=== PATIENT | female | born 1965 | race Caucasian/White ===

== ENCOUNTER 2020-03-27 18:36 | Emergency (ER) | payer OTHER ==
[2020-03-27 18:41] VITALS: RESP 18; TEMP 99.1
[2020-03-27] MEDS ORDERED: SODIUM CHLORIDE 0.9% 500 ML 500 ML IV STA (18:55)
[2020-03-27] MEDS ORDERED: MORPHINE SULFATE 2 MG/ML SYRINGE IVP STA (18:55)
[2020-03-27] MEDS ORDERED: IPRATROPIUM-ALBUTEROL 3 ML NEB INHALATION STA (18:56)
--- NOTE | 2020-03-27 19:00 | ED ---
General Adult HPI - General Source: patient, RN notes reviewed, old records reviewed Mode of arrival: ambulatory Limitations: no limitations <Harvinder Barnard - Last Filed: 03/27/20 22:54> <Fany Hoffmann - Last Filed: 04/04/20 12:47> - General Chief complaint: Abdominal Pain Stated complaint: abd pain Time Seen by Provider: 03/27/20 18:44 - History of Present Illness Initial comments: 54-year-old female patient past history significant for COPD presents to ED for evaluation of abdominal pain. Patient reports that the last 4 days she's been having right upper quadrant left upper quadrant abdominal pain. Denies nausea, reports that she has had diarrhea but is not unusual for her. She also reports that her breathing has been getting worse for the last month. States it feels similar to her emphysema. Denies chest pain. Reports that she ran out of her inhaler. Denies any other complaints. Systemic: Pt denies fatigue, fever/chills, rash. Pt denies weakness, night sweats, weight loss. Neuro: Pt denies headache, visual disturbances, syncope or pre-syncope. HEENT: Pt denies ocular discharge or irritation, otalgia, rhinorrhea, pharyngitis or notable lymphadenopathy. Cardiopulmonary: Pt denies chest pain, heart palpitations, dyspnea on exertion. Abdominal/GI: Pt denies n/v. : Pt denies dysuria, burning w/ urination, frequency/urgency. Denies new onset urinary or bowel incontinence. MSK: Pt denies myalgia, loss of strength or function in extremities. Neuro: Pt denies new onset weakness, paresthesias. (Harvinder Barnard) - Related Data Previous Rx's Medication Instructions Recorded Albuterol Inhaler [Ventolin Hfa 2 puff INHALATION RT-QID PRN #1 03/27/20 Inhaler] inhaler predniSONE 50 mg PO DAILY #4 tab 03/27/20 Allergies Allergy/AdvReac Type Severity Reaction Status Date / Time Penicillins Allergy Unknown Verified 03/27/20 19:37 codeine AdvReac Nausea Verified 03/27/20 19:37 Review of Systems ROS Other: All systems not noted in ROS Statement are negative. <Harvinder Barnard - Last Filed: 03/27/20 22:54> ROS Other: All systems not noted in ROS Statement are negative. <Fany Hoffmann - Last Filed: 04/04/20 12:47> ROS Statement: Those systems with pertinent positive or pertinent negative responses have been documented in the HPI. Past Medical History Past Medical History: Asthma, COPD History of Any Multi-Drug Resistant Organisms: None Reported Past Surgical History: Section Past Psychological History: No Psychological Hx Reported Smoking Status: Current every day smoker Past Alcohol Use History: None Reported Past Drug Use History: None Reported <Harvinder Barnard - Last Filed: 03/27/20 22:54> General Exam Limitations: no limitations <Harvinder Barnard - Last Filed: 03/27/20 22:54> - General Exam Comments Initial Comments: Constitutional: NAD, AOX3, Pt has pleasant affect. HEENT: NC/AT, trachea midline, neck supple, no lymphadenopathy. Posterior pharynx non erythematous, without exudates. External ears appear normal, without discharge. Mucous membranes moist. Eyes PERRLA, EOM intact. There is no scleral icterus. No pallor noted. Cardiopulmonary: RRR, no murmurs, rubs or gallops, no JVD noted. Lungs CTAB in anterior and posterior [place]. Mild diminished breath sounds are noted. Impr alonzo air movement after breathing treatment. No peripheral edema. Abdominal exam: Abdomen soft and non-distended. Abdomen mildly tender to palpation right upper quadrant epigastric region.. Bowel sounds active in LLQ. No hepatosplenomegaly. No ecchymosis Neuro: CN II-XII grossly intact. No nuchal rigidity. No raccon eyes, no young sign, no hemotympanum. No cervical spinal tenderness. MSK: No posterior calf tenderness bilaterally, homans sign negative bilaterally. Posterior tibialis and radial pulse +2 bilaterally. Sensation intact in upper and lower extremities. Full active ROM in upper and lower extremities, 5/5 stregnth. (Harvinder Barnard) Course Vital Signs 03/27/20 03/27/20 03/27/20 18:37 19:33 19:40 Temperature 99.1 F Pulse Rate 104 H 85 92 Respiratory 18 Rate Blood Pressure 180/109 O2 Sat by Pulse 96 Oximetry 03/27/20 03/27/20 21:00 22:27 Temperature Pulse Rate 93 92 Respiratory 18 18 Rate Blood Pressure 156/85 147/89 O2 Sat by Pulse 97 95 Oximetry Medical Decision Making - Lab Data Result diagrams: 03/27/20 19:35 03/27/20 19:35 - EKG Data -: EKG Interpreted by Me (and Dr. Marti ) <Harvinder Barnard - Last Filed: 03/27/20 22:54> - Lab Data Result diagrams: 03/27/20 19:35 03/27/20 19:35 <Fany Hoffmann - Last Filed: 04/04/20 12:47> - Medical Decision Making 54-year-old female patient past history significant for COPD presents to ED for evaluation of abdominal pain. Patient reports that the last 4 days she's been having right upper quadrant left upper quadrant abdominal pain. Denies nausea, reports that she has had diarrhea but is not unusual for her. She also reports that her breathing has been getting worse for the last month. States it feels similar to her emphysema. Denies chest pain. Reports that she ran out of her inhaler. Denies any other complaints. Patient vital signs are stable, afebrile. Physical exam displayed mild amount of right upper quadrant epigastric tenderness. Mild diminished breath sounds. Laboratory investigations were obtained. Mild leukocytosis as noted. UA negative. Troponin negative. Chest x-ray displayed small pleural effusions, normal heart and lungs. Gallbladder ULTRASOUND displayed large liver no focal deficit no dilated ducts. CT abdomen and pelvis with contrast displayed no evidence of renal stone obstruction normal appendix, no sign acute abdomen and pelvis. Patient was administered breathing treatments states that her breathing is here feeling improved. At time of discharge patient reports that she now believes that the pain is from a fall she suffered 4 days ago when she fell forward and hit her anterior abdomen on the bathtub. Patient will be discharged with breathing treatments will follow up with primary care provider and will return to ER if condition worsens. Case discussed with Dr. Hoffmann. (Harvinder Barnard) I was available for consultation in the emergency department. The history and physical exam were done by the midlevel provider. I was consulted for this patients care. I reviewed the case with the midlevel provider and based on their presentation of the patient, I agree with the assessment, medical decision making and plan of care as documented. Chart was dictated using [employer] ([employer]) dictation software. Attempts were made to correct any dictation errors however some typographical errors may persist. Patient was seen during a national state of emergency due to the Covid-19 pandemic. (Fany Hoffmann) - Lab Data Lab Results 03/27/20 03/27/20 03/27/20 Range/Units 19:35 19:35 19:35 WBC 11.8 H (3.8-10.6) k/uL RBC 4.54 (3.80-5.40) m/uL Hgb 14.1 (11.4-16.0) gm/dL Hct 43.1 (34.0-46.0) % MCV 94.9 (80.0-100.0) fL MCH 31.1 (25.0-35.0) pg MCHC 32.7 (31.0-37.0) g/dL RDW 13.8 (11.5-15.5) % Plt Count 249 (150-450) k/uL Neutrophils % 66 % Lymphocytes % 21 % Monocytes % 7 % Eosinophils % 4 % Basophils % 1 % Neutrophils # 7.8 H (1.3-7.7) k/uL Lymphocytes # 2.5 (1.0-4.8) k/uL Monocytes # 0.8 (0-1.0) k/uL Eosinophils # 0.4 (0-0.7) k/uL Basophils # 0.1 (0-0.2) k/uL PT 9.7 (9.0-12.0) sec INR 0.9 (<1.2) APTT 26.6 (22.0-30.0) sec Sodium (137-145) mmol/L Potassium (3.5-5.1) mmol/L Chloride (98-107) mmol/L Carbon Dioxide (22-30) mmol/L Anion Gap mmol/L BUN (7-17) mg/dL Creatinine (0.52-1.04) mg/dL Est GFR (CKD-EPI)AfAm (>60 ml/min/1.73 sqM) Est GFR (CKD-EPI)NonAf (>60 ml/min/1.73 sqM) Glucose (74-99) mg/dL Plasma Lactic Acid Mike (0.7-2.0) mmol/L Calcium (8.4-10.2) mg/dL Total Bilirubin (0.2-1.3) mg/dL AST (14-36) U/L ALT (4-34) U/L Alkaline Phosphatase (38-126) U/L Troponin I (0.000-0.034) ng/mL Total Protein (6.3-8.2) g/dL Albumin (3.5-5.0) g/dL Lipase (23-300) U/L Urine Color Light Yellow Urine Appearance Clear (Clear) Urine pH 6.5 (5.0-8.0) Ur Specific [place] 1.009 (1.001-1.035) Urine Protein Negative (Negative) Urine Glucose (UA) Negative (Negative) Urine Ketones Negative (Negative) Urine Blood Negative (Negative) Urine Nitrite Negative (Negative) Urine Bilirubin Negative (Negative) Urine Urobilinogen <2.0 (<2.0) mg/dL Ur Leukocyte Esterase Negative (Negative) Urine HCG, Qual (Not Detectd) 03/27/20 03/27/20 03/27/20 Range/Units 19:35 19:35 19:35 WBC (3.8-10.6) k/uL RBC (3.80-5.40) m/uL Hgb (11.4-16.0) gm/dL Hct (34.0-46.0) % MCV (80.0-100.0) fL MCH (25.0-35.0) pg MCHC (31.0-37.0) g/dL RDW (11.5-15.5) % Plt Count (150-450) k/uL Neutrophils % % Lymphocytes % % Monocytes % % Eosinophils % % Basophils % % Neutrophils # (1.3-7.7) k/uL Lymphocytes # (1.0-4.8) k/uL Monocytes # (0-1.0) k/uL Eosinophils # (0-0.7) k/uL Basophils # (0-0.2) k/uL PT (9.0-12.0) sec INR (<1.2) APTT (22.0-30.0) sec Sodium 138 (137-145) mmol/L Potassium 5.1 (3.5-5.1) mmol/L Chloride 107 (98-107) mmol/L Carbon Dioxide 25 (22-30) mmol/L Anion Gap 6 mmol/L BUN 12 (7-17) mg/dL Creatinine 0.55 (0.52-1.04) mg/dL Est GFR (CKD-EPI)AfAm >90 (>60 ml/min/1.73 sqM) Est GFR (CKD-EPI)NonAf >90 (>60 ml/min/1.73 sqM) Glucose 123 H (74-99) mg/dL Plasma Lactic Acid Mike 1.9 (0.7-2.0) mmol/L Calcium 9.1 (8.4-10.2) mg/dL Total Bilirubin 0.5 (0.2-1.3) mg/dL AST 26 (14-36) U/L ALT 23 (4-34) U/L Alkaline Phosphatase 102 (38-126) U/L Troponin I (0.000-0.034) ng/mL Total Protein 7.7 (6.3-8.2) g/dL Albumin 4.0 (3.5-5.0) g/dL Lipase 61 (23-300) U/L Urine Color Urine Appearance (Clear) Urine pH (5.0-8.0) Ur Specific [place] (1.001-1.035) Urine Protein (Negative) Urine Glucose (UA) (Negative) Urine Ketones (Negative) Urine Blood (Negative) Urine Nitrite (Negative) Urine Bilirubin (Negative) Urine Urobilinogen (<2.0) mg/dL Ur Leukocyte Esterase (Negative) Urine HCG, Qual Not Detected (Not Detectd) 03/27/20 Range/Units 19:35 WBC (3.8-10.6) k/uL RBC (3.80-5.40) m/uL Hgb (11.4-16.0) gm/dL Hct (34.0-46.0) % MCV (80.0-100.0) fL MCH (25.0-35.0) pg MCHC (31.0-37.0) g/dL RDW (11.5-15.5) % Plt Count (150-450) k/uL Neutrophils % % Lymphocytes % % Monocytes % % Eosinophils % % Basophils % % Neutrophils # (1.3-7.7) k/uL Lymphocytes # (1.0-4.8) k/uL Monocytes # (0-1.0) k/uL Eosinophils # (0-0.7) k/uL Basophils # (0-0.2) k/uL PT (9.0-12.0) sec INR (<1.2) APTT (22.0-30.0) sec Sodium (137-145) mmol/L Potassium (3.5-5.1) mmol/L Chloride (98-107) mmol/L Carbon Dioxide (22-30) mmol/L Anion Gap mmol/L BUN (7-17) mg/dL Creatinine (0.52-1.04) mg/dL Est GFR (CKD-EPI)AfAm (>60 ml/min/1.73 sqM) Est GFR (CKD-EPI)NonAf (>60 ml/min/1.73 sqM) Glucose (74-99) mg/dL Plasma Lactic Acid Mike (0.7-2.0) mmol/L Calcium (8.4-10.2) mg/dL Total Bilirubin (0.2-1.3) mg/dL AST (14-36) U/L ALT (4-34) U/L Alkaline Phosphatase (38-126) U/L Troponin I <0.012 (0.000-0.034) ng/mL Total Protein (6.3-8.2) g/dL Albumin (3.5-5.0) g/dL Lipase (23-300) U/L Urine Color Urine Appearance (Clear) Urine pH (5.0-8.0) Ur Specific [place] (1.001-1.035) Urine Protein (Negative) Urine Glucose (UA) (Negative) Urine Ketones (Negative) Urine Blood (Negative) Urine Nitrite (Negative) Urine Bilirubin (Negative) Urine Urobilinogen (<2.0) mg/dL Ur Leukocyte Esterase (Negative) Urine HCG, Qual (Not Detectd) - EKG Data EKG Comments: Ventricular rate 100,. And for 140, QRS 112, QT/QTC 364/469. Normal sinus rhythm, normal EKG, no concern for acute ischemia. (Harvinder Barnard) Disposition Is patient prescribed a controlled substance at d/c from ED?: No <Harvinder Barnard - Last Filed: 03/27/20 22:54> <Fany Hoffmann - Last Filed: 04/04/20 12:47> Clinical Impression: Abdominal pain, COPD (chronic obstructive pulmonary disease) Disposition: HOME SELF-CARE Condition: Stable Instructions (If sedation given, give patient instructions): COPD (Chronic Obstructive Pulmonary Disease) (ED), Abdominal Pain (ED) Additional Instructions: Follow-up with primary care provider tomorrow. Follow up with gluten settling tender tomorrow. Take steroids as directed. use breathing treatment as needed. Return to ER if condition worsens. Prescriptions: predniSONE 50 mg PO DAILY #4 tab Albuterol Inhaler [Ventolin Hfa Inhaler] 2 puff INHALATION RT-QID PRN #1 inhaler PRN Reason: Wheezing Referrals: None,Stated [Primary Care Provider] - 1-2 days Sam Mcguire [STAFF PHYSICIAN] - 1-2 days Anastacia Kirk MD [STAFF PHYSICIAN] - 1-2 days
[2020-03-27 19:50] LABS: Appearance,Urine Clear (Clear); Bilirubin,Urine Negative (Negative); Blood,Urine Negative (Negative); Color,Urine Light Yellow; Glucose,Urine (UA) Negative (Negative); Ketones,Urine Negative (Negative); Leukocyte Esterase,Urine Negative (Negative); Nitrite,Urine Negative (Negative); PH, Urine 6.5 (5.0-8.0); Protein,Urine Negative (Negative); Specific Gravity,Urine 1.009 (1.001-1.035); Urobilinogen,Urine <2.0 mg/dL (<2.0)
[2020-03-27 19:54] LABS: Basophils # (A) 0.1 k/uL (0-0.2); Basophils % (A) 1 %; Eosinophils # (A) 0.4 k/uL (0-0.7); Eosinophils % (A) 4 %; HCT 43.1 % (34.0-46.0); HGB 14.1 gm/dL (11.4-16.0); Lymphocytes # (A) 2.5 k/uL (1.0-4.8); Lymphocytes % (A) 21 %; MCH 31.1 pg (25.0-35.0); MCHC 32.7 g/dL (31.0-37.0); MCV 94.9 fL (80.0-100.0); Mean Platelet Volume 8.2; Monocytes # (A) 0.8 k/uL (0-1.0); Monocytes % (A) 7 %; Neutrophils # (A) 7.8 k/uL (1.3-7.7); Neutrophils % (A) 66 %; Platelet Count 249 k/uL (150-450); RBC 4.54 m/uL (3.80-5.40); RDW 13.8 % (11.5-15.5); WBC 11.8 k/uL (3.8-10.6)
[2020-03-27 19:58] LABS: ALT 23 U/L (4-34); AST 26 U/L (14-36); African American GFR (CKD) >90 (>60 ml/min/1.73 sqM); Alkaline Phosphatase 102 U/L (38-126); Anion Gap 6 mmol/L; Blood Urea Nitrogen 12 mg/dL (7-17); Calcium 9.1 mg/dL (8.4-10.2); Carbon Dioxide 25 mmol/L (22-30); Chloride 107 mmol/L (98-107); Glucose 123 mg/dL (74-99); Non-African American GFR(CKD) >90 (>60 ml/min/1.73 sqM); Sodium 138 mmol/L (137-145); Total Bilirubin 0.5 mg/dL (0.2-1.3); Total Protein 7.7 g/dL (6.3-8.2)
--- NOTE | 2020-03-27 20:00 | XR ---
EXAMINATION TYPE: XR chest 2V DATE OF EXAM: 03/27/2020 COMPARISON: NONE HISTORY: Epigastric pain TECHNIQUE: 2 views FINDINGS: Heart and mediastinum are normal. Lungs are clear. There is slight blunting of the costophr enic angles. There are no hilar masses. There are chest leads. IMPRESSION: Small pleural effusions. Normal heart and lungs.
[2020-03-27 20:10] LABS: Potassium 5.1 mmol/L (3.5-5.1)
[2020-03-27 21:06] LABS: INR 0.9 (<1.2); Partial Thromboplastin Time 26.6 sec (22.0-30.0); Prothrombin Time 9.7 sec (9.0-12.0)
--- NOTE | 2020-03-27 21:28 | US ---
EXAMINATION TYPE: US gallbladder DATE OF EXAM: 03/27/2020 COMPARISON: NONE CLINICAL HISTORY: RUQ pain . RUQ pain Exam limited to body habitus patient unable to hold breath and roll. Also overlying bowel gas. EXAM MEASUREMENTS: Liver Length: 22.2 cm Gallbladder Wall: .37 cm CBD: .6 cm Right Kidney: 11.8 x 5.6 x 4.6 cm Pancreas: Obscured by bowel gas Liver: Increased attenuation limited hepatomegaly. Gallbladder: Appears wnl Evidence for sonographic Shaw's sign: No CBD: wnl Right Kidney: wnl IMPRESSION: Enlarged liver. No focal defect. No dilated ducts.
[2020-03-27 22:28] VITALS: BP 147/89; PULSE 92
--- NOTE | 2020-03-27 22:32 | CT ---
EXAMINATION TYPE: CT abdomen pelvis w con DATE OF EXAM: 03/27/2020 COMPARISON: None HISTORY: RUQ pain with nausea. CT DLP: 3105.4 mGycm Automated exposure control for dose reduction was used. CONTRAST: Performed with IV Contrast, patient injected with 100 mL of Isovue 300. Images were obtained from the diaphragm to the floor the pelvis with IV contrast Isovue 100 mL. The lung bases are clear. There is no pleural effusion. Heart size is normal. There is no pericardial effusion. Liver spleen pancreas gallbladder appear normal. Bile ducts are not dilated. Stomach is in tact. There is no adrenal mass. Kidneys show satisfactory contrast opacification. There is no hydronephrosi s. There is 2.3 cm hypodense rounded area in the anterior right kidney that is probably a cyst. Urete rs are not dilated. There is no retroperitoneal adenopathy. Bladder distends smoothly. Uterus is ante verted. There is no pelvic mass. There is no inguinal hernia. There is no free fluid in the pelvis. T he appendix is posterior and appears normal. There is no mesenteric edema. There is no ascites or free air. There is no sign of a bowel obstructio n. There are a few scattered sigmoid diverticula. There is no sign of diverticulitis. Lumbar vertebra have normal alignment. There is vacuum disc at L4-5 and L5-S1. There is no compressio n fracture. The bony pelvis appears intact. Impression no evidence of renal stone or obstruction. Normal appendix. No sign of acute abdomen and pelvis.
[2020-03-27] MEDS ORDERED: predniSONE 50 MG TAB PO STA (22:58)
== END 2020-03-27 23:21 | disposition home or self-care (01) ==
LOC: EC 18:36
DX: J44.9 Chronic obstructive pulmonary disease, unspecified (principal); R10.11 Right upper quadrant pain; R10.12 Left upper quadrant pain; J90 Pleural effusion, not elsewhere classified; R10.811 Right upper quadrant abdominal tenderness; R10.816 Epigastric abdominal tenderness; D72.829 Elevated white blood cell count, unspecified; F17.200 Nicotine dependence, unspecified, uncomplicated; Z88.0 Allergy status to penicillin; Z88.5 Allergy status to narcotic agent
CPT/HCPCS: 36415; 94640; 93005; 80053; 83605; 83690; 84484; 85025; 85610; 85730; 81003; 81025; 71046; 76705; 74177; 99285; 96374; 96361 ×4; J2270; J7512; Q9967

== ENCOUNTER 2022-06-13 09:44 | Emergency (ER) | payer OTHER ==
[2022-06-13 09:50] VITALS: RESP 20; TEMP 97.9
[2022-06-13] MEDS ORDERED: PHENAZOPYRIDINE 200 MG TAB PO STA (11:46)
[2022-06-13] MEDS ORDERED: IBUPROFEN 800 MG TAB PO STA (11:47)
[2022-06-13] MEDS ORDERED: metroNIDAZOLE 500 MG TAB PO STA (12:35)
--- NOTE | 2022-06-13 12:38 | ED ---
Abdominal Pain HPI - General Chief Complaint: Abdominal Pain Stated Complaint: cramps,burning sensation when urinating Time Seen by Provider: 06/13/22 11:07 Source: patient Mode of arrival: ambulatory Limitations: no limitations - History of Present Illness Initial Comments: Patient is a 56-year-old female who presents to the emergency department with a chief complaint of burning with urination. Patient states symptoms started 3 days ago and have gotten worse. Patient states she feels burning in her lower abdomen. Denies history of urinary tract infection. Denies fever chills nausea vomiting. Denies concern for sexually-transmitted infections however does agree to testing since she had unprotected intercourse with a new partner yesterday. - Related Data Home Medications Medication Instructions Recorded Confirmed Acetaminophen [Tylenol Extra 1,000 - 1,500 mg PO Q6H PRN 06/13/22 06/13/22 Strength] Previous Rx's Medication Instructions Recorded Cephalexin [Keflex] 250 mg PO Q6HR 10 Days #20 cap 06/13/22 metroNIDAZOLE [Flagyl] 500 mg PO BID 7 Days #14 tab 06/13/22 Allergies Allergy/AdvReac Type Severity Reaction Status Date / Time Penicillins Allergy Rash/Hives Verified 06/13/22 13:22 codeine AdvReac Nausea Verified 06/13/22 13:22 Review of Systems ROS Statement: Those systems with pertinent positive or pertinent negative responses have been documented in the HPI. ROS Other: All systems not noted in ROS Statement are negative. Past Medical History Past Medical History: Asthma, COPD History of Any Multi-Drug Resistant Organisms: None Reported Past Surgical History: Section Past Psychological History: No Psychological Hx Reported Smoking Status: Current every day smoker Past Alcohol Use History: None Reported Past Drug Use History: None Reported General Exam Limitations: no limitations General appearance: alert, in no apparent distress Respiratory exam: Present: normal lung sounds bilaterally. Absent: respiratory distress, wheezes, rales, rhonchi, stridor Cardiovascular Exam: Present: regular rate, normal rhythm, normal heart sounds. Absent: systolic murmur, diastolic murmur, rubs, gallop, clicks GI/Abdominal exam: Present: soft, tenderness (suprapubic ), normal bowel sounds. Absent: distended, guarding, rebound, rigid External exam: Present: other (genital warts over anterior gluteal cleft ). Absent: swelling Speculum exam: Present: cervical discharge (yellow, thick ). Absent: normal speculum exam By manual exam: Absent: cervical motion tenderness Neurological exam: Present: alert, oriented X3, CN II-XII intact Psychiatric exam: Present: normal affect, normal mood Skin exam: Present: warm, dry, intact, normal color. Absent: rash Course Vital Signs 06/13/22 06/13/22 09:49 14:54 Temperature 97.9 F Pulse Rate 80 96 Respiratory 20 20 Rate Blood Pressure 161/83 138/72 O2 Sat by Pulse 98 96 Oximetry Medical Decision Making - Medical Decision Making This is a 56-year-old female who presents with dysuria 2. Tenderness. Thorough history and examination were performed. Speculum exam reveals yellow thick cervical discharge. There is no cervical motion tenderness. There is no fever. Trichomonas is detected. Urinalysis is indicative of infection. Patient treated for Trichomonas and urinary tract infection. STI education provided in detail. Dr. May is my attending. - Lab Data Lab Results 06/13/22 06/13/22 Range/Units 11:30 13:09 Urine Color Yellow Urine Appearance Cloudy H (Clear) Urine pH 5.5 (5.0-8.0) Ur Specific [place] 1.030 (1.001-1.035) Urine Protein 1+ H (Negative) Urine Glucose (UA) Negative (Negative) Urine Ketones Negative (Negative) Urine Blood Small H (Negative) Urine Nitrite Negative (Negative) Urine Bilirubin Negative (Negative) Urine Urobilinogen 2.0 (<2.0) mg/dL Ur Leukocyte Esterase Large H (Negative) Urine RBC 21 H (0-5) /hpf Urine WBC 24 H (0-5) /hpf Ur Squamous Epith Cells 6 H (0-4) /hpf Calcium Oxalate Crystal Many H (None) /hpf Urine Bacteria Rare H (None) /hpf Urine Mucus Many H (None) /hpf Trichomonas Ag (Rapid) Positive H (Negative) Disposition Clinical Impression: Trichomonas infection, Dysuria, Urinary tract infection Disposition: HOME SELF-CARE Condition: Good Instructions (If sedation given, give patient instructions): Sexually Transmitted Diseases (ED), Trichomoniasis (ED) Additional Instructions: You have been diagnosed with Trichomonas which is a sexually transmitted infection. It is very important you take antibiotic. Do not drink alcohol while taking this antibiotic as it can cause stomach upset. It is very important your partner is tested and treated for Trichomonas. Do not have sexual intercourse until antibiotic course is finished. Follow-up with primary care provider in one to 2 days. Return to the emergency department if you experience new, concerning, or worsening symptoms. Prescriptions: metroNIDAZOLE [Flagyl] 500 mg PO BID 7 Days #14 tab Cephalexin [Keflex] 250 mg PO Q6HR 10 Days #20 cap Is patient prescribed a controlled substance at d/c from ED?: No Referrals: None,Stated [Primary Care Provider] - 1-2 days
[2022-06-13 13:39] LABS: Appearance,Urine Cloudy (Clear); Bacteria,Urine Rare /hpf; Bilirubin,Urine Negative (Negative); Blood,Urine Small (Negative); Calcium Oxalate Crystals,Urine Many /hpf; Color,Urine Yellow; Glucose,Urine (UA) Negative (Negative); Ketones,Urine Negative (Negative); Leukocyte Esterase,Urine Large (Negative); Mucus,Urine Many /hpf; Nitrite,Urine Negative (Negative); PH, Urine 5.5 (5.0-8.0); Protein,Urine 1+ (Negative); RBC,Urine 21 /hpf (0-5); Squamous Epithelial Cell,Urine 6 /hpf (0-4); WBC,Urine 24 /hpf (0-5)
[2022-06-13 14:56] VITALS: BP 138/72; PULSE 96
== END 2022-06-13 14:56 | disposition home or self-care (01) ==
LOC: EC 09:44
DX: N39.0 Urinary tract infection, site not specified (principal); A59.9 Trichomoniasis, unspecified
CPT/HCPCS: 81001; 87070; 87086; 87491; 87591; 87808; 99284

== ENCOUNTER 2023-07-18 01:44 | Emergency (ER) | payer OTHER ==
[2023-07-18 02:00] VITALS: PULSE 100; TEMP 97.8
[2023-07-18] MEDS ORDERED: ONDANSETRON 4 MG/2 ML VIAL IVP STA (02:06)
[2023-07-18] MEDS ORDERED: SODIUM CHLORIDE 0.9% 1,000 ML IV STA (02:06)
[2023-07-18] MEDS ORDERED: MORPHINE SULFATE 4 MG/ML SYRINGE IVP STA (02:08)
--- NOTE | 2023-07-18 02:09 | ED ---
Abdominal Pain HPI - General Chief Complaint: Abdominal Pain Stated Complaint: Abd pain Time Seen by Provider: 07/18/23 01:55 Source: patient, EMS Mode of arrival: EMS Limitations: no limitations - History of Present Illness Initial Comments: Kena is a morbidly obese 57-year-old female who presents to the emergency department via ambulance for evaluation of severe abdominal pain. Patient reports that she woke from sleep with some abdominal pain she tried a bowel movement had a small bowel movement had no relief developed severe stabbing mid abdominal pain just above the umbilicus. No previous abdominal surgeries. - Related Data Home Medications Medication Instructions Recorded Confirmed Acetaminophen [Tylenol Extra 1,000 - 1,500 mg PO Q6H PRN 06/13/22 06/13/22 Strength] Previous Rx's Medication Instructions Recorded Cephalexin [Keflex] 250 mg PO Q6HR 10 Days #20 cap 06/13/22 metroNIDAZOLE [Flagyl] 500 mg PO BID 7 Days #14 tab 06/13/22 Allergies Allergy/AdvReac Type Severity Reaction Status Date / Time Penicillins Allergy Rash/Hives Verified 06/13/22 13:22 codeine AdvReac Nausea Verified 06/13/22 13:22 Review of Systems ROS Statement: Those systems with pertinent positive or pertinent negative responses have been documented in the HPI. ROS Other: All systems not noted in ROS Statement are negative. Past Medical History Past Medical History: Asthma, COPD, Hypertension Additional Past Medical History / Comment(s): left leg fracture History of Any Multi-Drug Resistant Organisms: None Reported Past Surgical History: Section Past Psychological History: No Psychological Hx Reported Smoking Status: Current every day smoker Past Alcohol Use History: None Reported Past Drug Use History: None Reported General Exam - General Exam Comments Initial Comments: Physical Exam GENERAL: Morbidly obese, moderate distress secondary to pain HENT: Normocephalic, Atraumatic. EYES: PERRL, EOMI PULMONARY: Tachypnea secondary to pain CARDIOVASCULAR: There is a regular rate and rhythm without any murmurs gallops or rubs. ABDOMEN: Obese, firm SKIN: Skin is clear with no lesions or rashes and otherwise unremarkable. : Deferred NEUROLOGIC: Patient is alert and oriented x3 Moving all extremities spontaneously MUSCULOSKELETAL: Normal extremities with adequate strength and full range of motion PSYCHIATRIC: Normal psychiatric evaluation Limitations: no limitations Course Vital Signs 07/18/23 07/18/23 07/18/23 01:46 02:00 03:00 Temperature 97.8 F Pulse Rate 100 Respiratory 16 18 14 Rate Blood Pressure 162/81 162/81 149/92 O2 Sat by Pulse 95 96 96 Oximetry Medical Decision Making - Medical Decision Making Was pt. sent in by a medical professional or institution (, [facility], HOME ECONOMICS TEACHER, urgent care, hospital, or correction...) When possible be specific @ -No Did you speak to anyone other than the patient for history (EMS, parent, family, police, friend...)? What history was obtained from this source @ -No Did you review nursing and triage notes (agree or disagree)? Why? @ -I reviewed and agree with nursing and triage notes Were old charts reviewed (outside hosp., previous admission, EMS record, old EKG, old radiological studies, urgent care reports/EKG's, correction records)? Report findings @ -No old charts were reviewed Differential Diagnosis (chest pain, altered mental status, abdominal pain women, abdominal pain men, vaginal bleeding, weakness, fever, dyspnea, syncope, headache, dizziness, GI bleed, back pain, seizure, CVA, palpatations, mental health, musculoskeletal)? @ -Differential Abdominal Pain Women: Appendicitis, Cholecystitis, diverticulosis, ischemic bowel, pancreatitis, hepatitis, UTI, gastroenteritis, AAA, incarcerated hernia, bowel obstruction, constipation, inflammatory bowel, hepatitis, peptic ulcer disease, splenic infarction, perforated viscus, vulvitis, ovarian torsion, PID, kidney stone, placenta abruption, this is not meant to be an all-inclusive list EKG interpreted by me (3pts min.). @ -As above X-rays interpreted by me (1pt min.). @ -None done CT interpreted by me (1pt min.). @ No evidence of perforation or free air, no significant inflammatory changes U/S interpreted by me (1pt. min.). @ -None done What testing was considered but not performed or refused? (CT, X-rays, U/S, labs)? Why? @ -None What meds were considered but not given or refused? Why? @ -None Did you discuss the management of the patient with other professionals (professionals i.e. , [facility], HOME ECONOMICS TEACHER, lab, RT, psych nurse, clinical social work aide, supervisor wound, teacher, industrial relations officer, director of casework services)? Give summary @ -No Was smoking cessation discussed for >3mins.? @ -No Was critical care preformed (if so, how long)? @ -No Were there social determinants of health that impacted care today? How? (Homelessness, low income, unemployed, alcoholism, drug addiction, transportation, low edu. Level, literacy, decrease access to med. care, residential, rehab)? @ -No Was there de-escalation of care discussed even if they declined (Discuss DNR or withdrawal of care, Hospice)? DNR status @ -No What co-morbidities impacted this encounter? (DM, HTN, Smoking, COPD, CAD, Cancer, CVA, ARF, Chemo, Hep., AIDS, mental health diagnosis, sleep apnea, morbid obesity)? @ -None Was patient admitted / discharged? Hospital course, mention meds given and route, prescriptions, significant lab abnormalities, going to OR and other pertinent info. @ -Patient left AMA Patient was seen and evaluated, history is obtained from patient. Patient is morbidly obese she does have a palpable hernia. She does have some tenderness a computed tomography scan is obtained. Labs had no significant abnormalities computed tomography scan was evaluated and I see no evidence of free air. I see no incarcerated hernias. Patient stated that she was uncomfortable in the bed, her boat was going numb her pain was getting better and her abdomen but overall she is feeling worse because of having a simvastatin she cannot wait any longer to leave. There is no formal read on the CT at the time of leaving patient understood this. Patient was notified she'll be called if there is any critical findings and she can return any time for reevaluation. Undiagnosed new problem with uncertain prognosis? @ -No Drug Therapy requiring intensive monitoring for toxicity (Heparin, Nitro, Insulin, Cardizem)? @ -No Were any procedures done? @ -No Diagnosis/symptom? @ -Abdominal pain, morbid obesity Acute, or Chronic, or Acute on Chronic? @ -default Uncomplicated (without systemic symptoms) or Complicated (systemic symptoms)? @ -default Side effects of treatment? @ -No Exacerbation, Progression, or Severe Exacerbation? @ -No Poses a threat to life or bodily function? How? (Chest pain, [place], [place], pneumonia, PE, COPD, DKA, ARF, appy, cholecystitis, CVA, Diverticulitis, Homicidal, Suicidal, threat to staff... and all critical care pts) @ -No - Lab Data Result diagrams: 07/18/23 02:19 07/18/23 02:19 Lab Results 07/18/23 07/18/23 07/18/23 Range/Units 02:19 02:19 02:19 WBC 15.5 H (3.8-10.6) k/uL RBC 4.93 (3.80-5.40) m/uL Hgb 15.5 (11.4-16.0) gm/dL Hct 46.7 H (34.0-46.0) % MCV 94.7 (80.0-100.0) fL MCH 31.3 (25.0-35.0) pg MCHC 33.1 (31.0-37.0) g/dL RDW 13.3 (11.5-15.5) % Plt Count 204 (150-450) k/uL MPV 9.8 Neutrophils % 65 % Lymphocytes % 25 % Monocytes % 7 % Eosinophils % 2 % Basophils % 1 % Neutrophils # 10.1 H (1.3-7.7) k/uL Lymphocytes # 3.8 (1.0-4.8) k/uL Monocytes # 1.1 H (0-1.0) k/uL Eosinophils # 0.2 (0-0.7) k/uL Basophils # 0.1 (0-0.2) k/uL Sodium 142 (137-145) mmol/L Potassium 3.8 (3.5-5.1) mmol/L Chloride 102 (98-107) mmol/L Carbon Dioxide 31 H (22-30) mmol/L Anion Gap 9 mmol/L BUN 15 (7-17) mg/dL Creatinine 0.46 L (0.52-1.04) mg/dL Est GFR (CKD-EPI)AfAm >90 (>60 ml/min/1.73 sqM) Est GFR (CKD-EPI)NonAf >90 (>60 ml/min/1.73 sqM) Glucose 152 H (74-99) mg/dL Plasma Lactic Acid Mike 2.0 (0.7-2.0) mmol/L Calcium 8.8 (8.4-10.2) mg/dL Total Bilirubin 0.6 (0.2-1.3) mg/dL AST 23 (14-36) U/L ALT 28 (4-34) U/L Alkaline Phosphatase 107 (38-126) U/L Total Protein 6.8 (6.3-8.2) g/dL Albumin 3.7 (3.5-5.0) g/dL Amylase 38 (30-110) U/L Lipase 124 (23-300) U/L Disposition Clinical Impression: Abdominal pain Disposition: LEFT AGAINST MEDICAL ADVICE Instructions (If sedation given, give patient instructions): Abdominal Pain (ED) Is patient prescribed a controlled substance at d/c from ED?: No Referrals: None,Stated [Primary Care Provider] - 1-2 days
[2023-07-18 03:12] LABS: ALT 28 U/L (4-34); AST 23 U/L (14-36); African American GFR (CKD) >90 (>60 ml/min/1.73 sqM); Albumin 3.7 g/dL (3.5-5.0); Alkaline Phosphatase 107 U/L (38-126); Amylase 38 U/L (30-110); Anion Gap 9 mmol/L; Blood Urea Nitrogen 15 mg/dL (7-17); Calcium 8.8 mg/dL (8.4-10.2); Carbon Dioxide 31 mmol/L (22-30); Chloride 102 mmol/L (98-107); Glucose 152 mg/dL (74-99); Lipase 124 U/L (23-300); Non-African American GFR(CKD) >90 (>60 ml/min/1.73 sqM); Potassium 3.8 mmol/L (3.5-5.1); Sodium 142 mmol/L (137-145); Total Bilirubin 0.6 mg/dL (0.2-1.3); Total Protein 6.8 g/dL (6.3-8.2)
[2023-07-18 03:30] LABS: Basophils # (A) 0.1 k/uL (0-0.2); Basophils % (A) 1 %; Eosinophils # (A) 0.2 k/uL (0-0.7); Eosinophils % (A) 2 %; HCT 46.7 % (34.0-46.0); HGB 15.5 gm/dL (11.4-16.0); Lymphocytes # (A) 3.8 k/uL (1.0-4.8); Lymphocytes % (A) 25 %; MCH 31.3 pg (25.0-35.0); MCHC 33.1 g/dL (31.0-37.0); MCV 94.7 fL (80.0-100.0); Mean Platelet Volume 9.8; Monocytes # (A) 1.1 k/uL (0-1.0); Monocytes % (A) 7 %; Neutrophils # (A) 10.1 k/uL (1.3-7.7); Neutrophils % (A) 65 %; Platelet Count 204 k/uL (150-450); RBC 4.93 m/uL (3.80-5.40); RDW 13.3 % (11.5-15.5); WBC 15.5 k/uL (3.8-10.6)
[2023-07-18 03:56] VITALS: BP 149/92; RESP 14
--- NOTE | 2023-07-18 06:22 | CT ---
EXAMINATION TYPE: CT abdomen pelvis w con CT DLP: 349 mGycm, Automated exposure control for dose reduction was used. DATE OF EXAM: 07/18/2023 3:56 AM COMPARISON: CT abdomen pelvis most recent from 03/27/2020 CLINICAL INDICATION:Female, 57 years old with history of abdominal pain - concern for hernia; TECHNIQUE: Axial CT of the abdomen and pelvis. Sagittal and coronal reformats were created on a [employer] workstation. Contrast used: mL of , (none if empty) Oral contrast used: (none if empty) FINDINGS: LOWER CHEST: Unremarkable ABDOMEN LIVER: Unremarkable GALLBLADDER AND BILE DUCTS: Unremarkable. PANCREAS: Unremarkable. SPLEEN: Unremarkable. ADRENAL GLANDS: Unremarkable. KIDNEYS AND URETERS: No evidence of hydronephrosis or renal calculus. The ureters are unremarkable. PELVIS BLADDER: Unremarkable REPRODUCTIVE: Unremarkable. ABDOMEN & PELVIS STOMACH AND BOWEL: No evidence of bowel obstruction. The appendix is normal. PERITONEUM/RETROPERITONEUM: No evidence of pneumoperitoneum or free fluid. VASCULATURE: No evidence of aortic aneurysm. MUSCULOSKELETAL: No acute osseous abnormalities, mild degeneration changes throughout the spine. Mild osteoporosis changes of the hips with osteophyte formation of the acetabulum LYMPH NODES: No gross evidence for lymphadenopathy. SOFT TISSUE/ABDOMINAL WALL: Fat-containing umbilical hernia measuring 13 x 43 mm at the neck.. Additi onal ventral wall hernia more superiorly measuring 13 x 23 mm at the neck. IMPRESSION: 1. Fat-containing umbilical hernia just superior to the a fat-containing ventral wall hernia. These are both similar to 2020. 2. No evidence for acute abdominal process.
== END 2023-07-18 05:22 | disposition left against medical advice (07) ==
LOC: EC 01:44
DX: K42.9 Umbilical hernia without obstruction or gangrene (principal); J44.89 Other specified chronic obstructive pulmonary disease; I10 Essential (primary) hypertension; E66.01 Morbid (severe) obesity due to excess calories; F17.200 Nicotine dependence, unspecified, uncomplicated; Z88.0 Allergy status to penicillin; Z88.5 Allergy status to narcotic agent; Z68.42 Body mass index [BMI] 45.0-49.9, adult
CPT/HCPCS: 36415; 80053; 82150; 83605; 83690; 85025; 74177; 99285; 96374; 96375; 96361; J2270; J2405; Q9967

== ENCOUNTER 2024-05-31 21:40 | Emergency (ER) | payer OTHER | END 2024-06-01 09:15 | disposition home or self-care (01) | LOC: EC 21:40 | DX: I10 Essential (primary) hypertension | CPT/HCPCS: 93005; 99283 ==